=== PATIENT | female | born 2000 | race Caucasian/White ===

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

== ENCOUNTER 2019-01-06 12:52 | Emergency (ER) | payer OTHER ==
[~2019-01-06] VITALS: Ht 157.5 cm; Wt 56.7 kg
== END 2019-01-06 20:01 | disposition home or self-care (01) ==
LOC: ER 12:52
DX: K52.9 Noninfective gastroenteritis and colitis, unspecified (principal)

== ENCOUNTER 2021-03-15 16:50 | Emergency (ER) | payer OTHER ==
[~2021-03-15] VITALS: Ht 154.9 cm; Wt 78.0 kg
[2021-03-16] MEDS ORDERED: ZOFRAN8 MG PO (02:29)
[2021-03-16] MEDS ORDERED: LEVSIN/SL0.125 MG SL (02:29)
[2021-03-16] MEDS ORDERED: INTESTINEX680 M1 PO (02:29)
[2021-03-16] MEDS ORDERED: CIPRO500 MG PO (02:29)
== END 2021-03-16 02:35 | disposition home or self-care (01) ==
LOC: ER 16:50
DX: K52.9 Noninfective gastroenteritis and colitis, unspecified (principal)